=== PATIENT | male | born 1990 | race Asian ===

== ENCOUNTER 2017-01-01 14:26 | Emergency (ER) | payer OTHER ==
[2017-01-01 14:30] VITALS: BP 133/82; PULSE 77; TEMP 97.5; BMI 20.7
[2017-01-01] MEDS ORDERED: KETOROLAC TROMETHAMINE 60 MG/2 ML VIAL IM ONE (16:08)
[2017-01-01] MEDS ORDERED: CYCLOBENZAPRINE HCL 10 MG TABLET (FP) PO ONE (16:08)
[2017-01-01] MEDS ORDERED: CYCLOBENZAPRINE HCL 10 MG TABLET (FP) ONE (16:08)
[2017-01-01] MEDS ORDERED: KETOROLAC TROMETHAMINE 60 MG/2 ML VIAL ONE (16:08)
--- NOTE | 2017-01-01 16:08 | PDOC ---
History of Present Illness - General History Source: Patient Exam Limitations: No Limitations - History of Present Illness Initial Comments: 01/01/17 16:12 The patient is a 26 year old male, with a significant past medical history of chronic lower back pain, who presents to the emergency department with lower back pain for the past 3 days. The patient (former [employer]) states he was working on his car 3 days ago when he suddenly experienced sudden onset of acute mid- lower back pain. Patient states his pain has progressively worsened and is unable to move. Patient admits to taking Ibuprofen and getting a gentle massage however denies any pain relief. Patient denies any radiating pain, numbness or tingling. Patient denies any bowel or urinary incontinence. Patient denies fever, chills, nausea, vomit, diarrhea or constipation. Patient reports to the ED for further evaluation. Note: Patient has been on medical disability leave from the [employer]iftee due to L knee injury and Lower back injury. Patient has not been evaluated for his back pain since then. Allergies: NKA Past surgical history: None Social history: Current everyday smoker <Rosalie Cortes - Last Filed: 01/01/17 16:36> - General History Source: Patient <Lalita Dunbarh - Last Filed: 01/01/17 21:26> - General Chief Complaint: Back Pain Stated Complaint: LOWER BACK PAIN Time Seen by Provider: 01/01/17 15:37 Past History <Rosalie Cortes - Last Filed: 01/01/17 16:36> - Past Medical History Other medical history: NONE - Psycho/Social/Smoking Cessation Hx Anxiety: No Suicidal Ideation: No Smoking History: Never smoked Have you smoked in the past 12 months: No If you are a former smoker, when did you quit?: vaping Information on smoking cessation initiated: No Hx Alcohol Use: No Drug/Substance Use Hx: No Substance Use Type: None <Tracy Dunbar - Last Filed: 01/01/17 21:26> - Past Medical History Allergies/Adverse Reactions: Allergies Allergy/AdvReac Type Severity Reaction Status Date / Time No Known Allergies Allergy Verified 01/01/17 14:27 Home Medications: Ambulatory Orders Ondansetron [Zofran Odt -] 4 mg SL TID #6 od.tablet 12/11/15 Cyclobenzaprine HCl [Flexeril 10 mg] 10 mg PO BID PRN #14 tablet 01/01/17 Review of Systems - Review of Systems Able to Perform ROS?: Yes Comments:: 01/01/17 16:16 CONSTITUTIONAL: Absent: fever, no chills, no fatigue EYES: Absent: visual changes GI: Absent: abdominal pain, no nausea, no vomiting, no constipation, no diarrhea MUSCULOSKELETAL: + back pain Absent: no arthralgia, no myalgia SKIN: Absent: rash NEURO: Absent: headache <Rosalie Cortes - Last Filed: 01/01/17 16:36> *Physical Exam - Vital Signs Last Vital Signs Temp Pulse Resp BP Pulse Ox 97.5 F L 77 18 133/82 100 01/01/17 14:28 01/01/17 14:28 01/01/17 14:28 01/01/17 14:28 01/01/17 14:28 - Physical Exam Comments: 01/01/17 16:16 GENERAL: Well-appearing, well-nourished. No apparent distress. HEENT: +Neck supple. Normocephalic, atraumatic. PERRL, EOM intact. PULMONARY: Clear to auscultation bilaterally. EXTREMITIES: +LS Spine with spinal tenderness reproducible from T12- L4. Limited ROM 20 degree with forward flexion with reproduced pain. Unable to perform leg raise test secondary to pain. No gross deformities. SKIN: Warm, dry. No rash NEUROLOGICAL: No focal neurological deficits. <Rosalie Cortes - Last Filed: 01/01/17 16:36> - Vital Signs Last Vital Signs Temp Pulse Resp BP Pulse Ox 97.5 F L 77 18 133/82 100 01/01/17 14:28 01/01/17 14:28 01/01/17 14:28 01/01/17 14:28 01/01/17 14:28 <Tracy Dunbar - Last Filed: 01/01/17 21:26> Medical Decision Making - Medical Decision Making 01/01/17 16:35 Tracy Redman BAND BOOKER: The scribe's documentation has been prepared under my direction and personally reviewed by me in its entirery. I confirm that the note above accurately reflects all work, treatment, procedures, and medical decision making performed by me. <Rosalie Cortes - Last Filed: 01/01/17 16:36> *DC/Admit/Observation/Transfer - Attestations Scribe Attestion: 01/01/17 16:17 Documentation prepared by Rosalie Cortes, acting as medical delivery technician for Tracy Dunbar NP <Rosalie Cortes - Last Filed: 01/01/17 16:36> - Discharge Dispostion Admit: No <Tracy Dunbar - Last Filed: 01/01/17 21:26> Diagnosis at time of Disposition: Low back strain Qualifiers: Encounter type: initial encounter Qualified Code(s): S39.012A - Strain of muscle, fascia and tendon of lower back, initial encounter - Discharge Dispostion Disposition: HOME Condition at time of disposition: Stable - Patient Instructions Printed Discharge Instructions: DI for Back Strain or Sprain Additional Instructions: Rest, no heavy lifting or exercise until pain is resolved Hot soaks to neck and low back as often as possible/hot showers or Jacuzzis No massage or therapy until spasm is gone Continue ibuprofen 2-200 mg tablets every 6 hours for the next 3 days then as needed for pain and swelling Cyclobenzaprine 1-10mg every 8 hours as needed for spasm If not significant improvement within 24 hours with medication and rest regime, followup with private physician for change in medications and /or therapy.
== END 2017-01-01 17:27 | disposition home or self-care (01) ==
LOC: JERFT 14:26
PROC: 3E0233Z Introduction of Anti-inflammatory into Muscle, Percutaneous Approach (ICD-10-PCS; principal; 2017-01-01)
DX: S39.012A Strain of muscle, fascia and tendon of lower back, initial encounter (principal); X50.1XXA Overexertion from prolonged static or awkward postures, initial encounter; X50.9XXA Other and unspecified overexertion or strenuous movements or postures, initial encounter; Y93.89 Activity, other specified; Y92.89 Other specified places as the place of occurrence of the external cause
CPT/HCPCS: 72100-TC; 96372; 99281-25